=== PATIENT | female | born 2000 ===

== ENCOUNTER 2020-05-26 18:55 | Inpatient (IN) | payer OTHER ==
--- OUTSIDE RECORDS SUMMARY | 2020-05-26 19:47 | XMS ---
:2000 Author Organization [facility] Support Name Relationship Address Phone UE Unavailable Unavailable Unavailable ZOEY MORALES [address] [place] [address] Re-disclosure Warning The records that you are about to access may contain information from federally- assisted alcohol or drug abuse programs. If such information is present, then the following federally mandated warning applies: This information has been disclosed to you from records protected by federal confidentiality rules (42 CFR part 2). The federal rules prohibit you from making any further disclosure of this information unless further disclosure is expressly permitted by the written consent of the person to whom it pertains or as otherwise permitted by 42 CFR part 2. A general authorization for the release of medical or other information is NOT sufficient for this purpose. The Federal rules restrict any use of the information to criminally investigate or prosecute any alcohol or drug abuse patient.The records that you are about to access may contain highly sensitive health information, the redisclosure of which is protected by Article 27-F of the [facility] Public Health law. If you continue you may haveaccess to information: Regarding HIV / AIDS; Provided by facilities licensed or operated by the [facility] Office of Mental Health; or Provided by the [facility] Office for People With Developmental Disabilities. If such information is present, then the following [facility] mandated warning applies: This information has been disclosed to you from confidential records which are protected by state law. State law prohibits you from making any further disclosure of this information without the specific written consent of the person to whom it pertains, or as otherwise permitted by law. Any unauthorized further disclosure in violation of state law may result in a fine or shelter sentence or both. A general authorization for the release of medical or other information is NOT sufficient authorization for further disclosure. Insurance Providers Payer name Policy type Policy ID Covered Covered democrat's Policy P [place] / Coverage democrat ID relationship to Lo Inf ormation type lo MEDICAID [id number] SP [id number] [facility] [id number] SP [id number] 100 HEALTH NON CAP SELF PAY SP INSURANCE
--- OUTSIDE RECORDS SUMMARY | 2020-05-26 19:57 | XMS ---
:2000 Author Organization [facility] Support Name Relationship Address Phone UE Unavailable Unavailable Unavailable ZOEY MORALES [address] [place] [address] Re-disclosure Warning The records that you are [...] is protected by Article 27-F of the [facility] Public Health law. If you continue you may haveaccess to information: Regarding HIV / AIDS; Provided by facilities licensed or operated by the [facility] Office of Mental Health; or Provided by the [facility] Office for People With Developmental Disabilities. If such information is present, then the following [facility] mandated warning applies: This information has been [...] law may result in a fine or detention sentence or both. A general authorization for the release of medical or other information is NOT sufficient authorization for further disclosure. Insurance Providers Payer name Policy type Policy ID Covered Covered green party's Policy P [place] / Coverage green party ID relationship to Lo Inf ormation type lo MEDICAID [id number] SP [id number] COUNTS INCLUDE [id number] [facility]EDS AT [facility] [id number] SP [id number] 100 HEALTH NON CAP SELF PAY SP INSURANCE
[2020-05-26 20:16] LABS: BASO % 0.1 % (0-2.0); EOS % 4.5 % (0-4.5); HEMATOCRIT 40.7 % (32.4-45.2); HEMOGLOBIN 13.8 GM/dL (10.7-15.3); LYMPH % 20.1 % (8-40); MCH 30.5 pg (25.7-33.7); MEAN CELL VOLUME 89.7 fl (80-96); MONO % 4.2 % (3.8-10.2); NEUT % 71.1 % (42.8-82.8); PLATELET COUNT 220 K/MM3 (134-434); RBC 4.54 M/mm3 (3.60-5.2); RDW 13.4 % (11.6-15.6)
[2020-05-26] MEDS ORDERED: PROMETHAZINE HCL 25 MG/1 ML VIAL IVPUSH ONE (20:16)
[2020-05-26] MEDS ORDERED: BUTORPHANOL TARTRATE 1 MG/ML VIAL IVPB ONE (20:16)
[2020-05-26 20:26] LABS: INR 0.93 (0.83-1.09)
[2020-05-26 20:28] LABS: ACTIVATED PTT 28.6 SECONDS (25.2-36.5)
[2020-05-26] MEDS ORDERED: DEXTROSE 5%-LACTATED RINGERS 1,000 ML IV SCH (20:30)
--- NOTE | 2020-05-26 20:34 | HP ---
Past Medical History - Primary Care Physician PCP:: Sera Norton - Admission Chief Complaint: 19yrs , 40.1 wks admitted in active labor. onset LP since 12.00 noon History of Present Illness: care at , [facility] wt gain 33lbs panel 10/16/19 : O pos, Hbsag neg, Rubella immune, Measles immune, Rubella immune, Varicella immune , Sickle neg, Hiv neg , ct/gc neg . gct wnl 04/25/20 h/h 13.2/39.3. plt 245,gbs neg, gc/ct neg, hiv neg dating us 11/13/19 12.2 wks , edc 05/25/20 Anatomy us 12/30/19 : 20.2 wks , normal growth, anatomy wnl 03/02/20 : 28.0 wks , vx, post placenta efw 130gm(73%tile) History Source: Patient, Medical Record Limitations to Obtaining History: No Limitations - Past Medical History ARCHITECTURAL TECHNOLOGIST: No: Seizure Cardiovascular: No: HTN Pulmonary: No: Asthma Hepatobiliary: No: Hepatitis B, Hepatitis C Renal/: No: UTI ...: 1 ...LMP: 08/19/19 ... Weeks Gestation by Dates: 40.1 ...EDC by Dates: 05/25/20 ...EDC by Sono: 05/25/20 (40.1 wks ) Heme/Onc: No: Anemia Infectious Disease: No: AIDS, HIV, STD's, Tuberculosis Psych: No: Addictions, Anxiety, Bipolar, Depression, Panic, Psychosis, Schizophrenia, Other Endocrine: No: Diabetes Mellitus, Hyperthyroidism, Hypothyroidism - Past Surgical History Past Surgical History: Yes: None Hx Myomectomy: No Hx Transabdominal Cerclage: No - Smoking History Smoking history: Never smoked Have you smoked in the past 12 months: No - Alcohol/Substance Use Hx Alcohol Use: No History of Substance Use: reports: None - Social History History of Recent Travel: No Home Medications - Allergies Allergies/Adverse Reactions: Allergies Allergy/AdvReac Type Severity Reaction Status Date / Time pork derived (porcine) Allergy Mild Vomiting Verified 05/26/20 20:25 pork Allergy Mild Vomiting Uncoded 05/26/20 20:15 - Home Medications Home Medications: Ambulatory Orders Pnv No.95/Ferrous Fum/Folic AC [ Caplet] 1 tab PO DAILY 05/26/20 Review of Systems - Review of Systems Constitutional: reports: No Symptoms Eyes: reports: No Symptoms HENT: reports: No Symptoms Neck: reports: No Symptoms Cardiovascular: reports: No Symptoms Respiratory: reports: No Symptoms Gastrointestinal: reports: No Symptoms Genitourinary: reports: No Symptoms Breasts: reports: No Symptoms Reported Musculoskeletal: reports: No Symptoms Integumentary: reports: No Symptoms Neurological: reports: No Symptoms Endocrine: reports: No Symptoms Psychiatric: reports: No Symptoms Pain Intensity: 5 Physical Exam - Maternity Vital Signs: Selected Entries 05/26/20 20:16 Weight 150 lb Constitutional: Yes: Well Nourished, Moderate Distress Eyes: Yes: WNL HENT: Yes: WNL, Normocephalic Neck: Yes: WNL Cardiovascular: Yes: WNL Lungs: Clear to auscultation Breast(s): Yes: WNL - Abdominal Exam/OB Fundal Height: 39 Number of Fetuses: Single Presentation: Vertex Contractions: Yes Regularity: Regular (2 min) Intensity: Moderate Monitor Mode: External Heart Rate (range): 120 Heart Rate Location: Midline Category: I Accelerations: Non-Uniform Decelerations: None - Vaginal Exam/OB Vaginal Bleeding: No Dilatation (cm): 5 Effacement (%): 100 Amniotic Membrane Status: Bulging Presentation: Vertex/Position Station: -1 (-1/0) - Physical Exam Musculoskeletal: Yes: WNL, Muscle Weakness Extremities: No: Calf Tenderness Edema: Yes Edema: LLE: 1+, RLE: 1+ Integumentary: Yes: WNL Deep Tendon Reflex Grade: Normal +2 ...Motor Strength: WNL Psychiatric: Yes: WNL, Alert, Oriented - Labs Lab Results: Laboratory Tests 05/26/20 05/26/20 05/26/20 19:50 19:50 19:50 WBC 12.0 H Hgb 13.8 Hct 40.7 Plt Count 220 PT with INR 11.00 INR 0.93 PTT (Actin FS) 28.6 Sodium 138 Potassium 4.2 Chloride 106 Carbon Dioxide 24 BUN 5.0 L Creatinine 0.6 Random Glucose 72 L Syphilis Serology Blood Type Antibody Screen 05/26/20 05/26/20 19:50 19:50 WBC Hgb Hct Plt Count PT with INR INR PTT (Actin FS) Sodium Potassium Chloride Carbon Dioxide BUN Creatinine Random Glucose Syphilis Serology Non-reactive Blood Type O POSITIVE Antibody Screen Negative Hemorrhage Risk Assessment - Risk Factors High Risk Factors: Yes: None Risk Score: 0 Risk Level: Low Risk Problem List - Problems (1) Post term over 40 weeks Code(s): O48.0 - POST-TERM (2) Labor established Code(s): [id number] - Assessment/Plan 19 yrs , 40.1 wks in labor gbs neg stadol + phenrgan prn for pain anticipate vag delivery
[2020-05-26 20:40] LABS: CALCIUM 8.9 mg/dL (8.5-10.1); CREATININE 0.6 mg/dL (0.55-1.3); POTASSIUM 4.2 mmol/L (3.5-5.1)
[2020-05-26 20:46] VITALS: BMI 26.5
[2020-05-26] MEDS ORDERED: PROMETHAZINE HCL 25 MG/1 ML VIAL ONE (21:06)
[2020-05-26] MEDS ORDERED: BUTORPHANOL TARTRATE 1 MG/ML VIAL ONE (21:06)
--- NOTE | 2020-05-26 21:11 | PN ---
Progress Note, Labor Vaginal Exam #1 Labor Exam Date: 05/26/20 Labor Exam Time: 21:00 Heart Rate (range): 120 Dilatation: 8 Effacement (%): 100 Amniotic Membrane Status: Ruptured Presentation: Vertex/Position Station: 0 (0/+1) Remarks: fhr cat-1 uc 2 min rx iv stadol1 mg + phenrgan 25 m iv stat Vaginal Exam #2 Labor Exam Date: 05/26/20 Labor Exam Time: 22:45 Heart Rate (range): 120 Dilatation: 10 Effacement (%): 100 Amniotic Membrane Status: Ruptured (AROM clear) Presentation: Vertex/Position Station: +2 Remarks: fhr cat-1 uc q2 min pt pushing Selected Entries 05/26/20 05/26/20 20:36 22:00 Temperature 97.8 F 98.1 F Pulse Rate 86 93 H Respiratory 20 20 Rate Blood Pressure 118/79 118/67 Weight 150 lb
[2020-05-26] MEDS ORDERED: OXYTOCIN 20 UNITS in 0.9% NS 20 UNIT/1,000 ML INFUS.BAG IV ONE (22:45)
[2020-05-27] MEDS ORDERED: METHYLERGONOVINE MALEATE 0.2 MG/1 ML AMP IM PRN (00:01)
[2020-05-27] MEDS ORDERED: WITCH HAZEL 50% (TUCKS) 40 PAD/JAR PAD TP PRN (00:01)
[2020-05-27] MEDS ORDERED: oxyCODONE HCL 5 MG TABLET PO PRN (00:01)
[2020-05-27] MEDS ORDERED: ACETAMINOPHEN 325 MG TABLET (FP) PO PRN (00:01)
[2020-05-27] MEDS ORDERED: IBUPROFEN 600 MG TABLET (FP) PO PRN (00:01)
[2020-05-27] MEDS ORDERED: BENZOCAINE 20% 57 GM BOTTLE TP PRN (00:01)
[2020-05-27] MEDS ORDERED: BENZOCAINE 28 GM HEMORRHOIDAL OINTMENT TP PRN (00:01)
[2020-05-27] MEDS ORDERED: BISACODYL 10 MG SUPP.RECT RC PRN (00:01)
[2020-05-27] MEDS ORDERED: OXYTOCIN 20 UNITS in 0.9% NS 20 UNIT/1,000 ML INFUS.BAG IV SCH (00:15)
--- NOTE | 2020-05-27 00:17 | PN ---
Delivery - Delivery Vaginal Delivery: No Problems, Spontaneous (pt delievered vx Jose position, shoulders delievered without difficulty , cord clamped cut, cord blood collected .trivascular cord . placenta removed completely , membranes removed in pieces completely . 2nd degree lacertion noted in midline & lt lateral vaginal edge laceration .local anesthesia infiltrated .Laceration sutured with chr catgut in layers .bladder catheterized emptied 150 ml lance color urine. Pr ex mucosa & sphincter intact .onv258 ml) Type of Anesthesia: Local Episiotomy/Laceration: 2nd degree EBL (cc): 400 Delivery, Single - Stages of Labor Date 1st Stage Initiatied: 05/26/20 Time 1st Stage Initiated: 12:00 Date 2nd Stage Initiated: 05/26/20 Time 2nd Stage Initiated: 22:45 Date of Delivery: 05/26/20 Time of Delivery: 23:00 Time Placenta Delivered: 23:05 Placenta: Yes: Spontaneous, Uterine Exploration - Condition of Investor Relations Coordinator/Computer Typesetter Keyliner Present: No Infant Gender: Male Weight: 8 lb 3 oz Position: Left, OA Total Hours ROM (Hrs/Mins): 20mins. - 1 Minute Total Score: 9 5 Minutes Total Score: 9 - [place] Feeding Plan Initial Plan: Elected not to breastfeed exclusively throughout hospitalization Remarks - Remarks Remarks: 19 yrs , 40.1 weeks in labor . PNC at , [facility] gbs neg , one dose of iv stadol+ phenrgan given for labor analgesia intrapartum course uneventful
[2020-05-27 08:38] LABS: BASO % 0.2 % (0-2.0); EOS % 0.1 % (0-4.5); HEMATOCRIT 33.5 % (32.4-45.2); HEMOGLOBIN 11.6 GM/dL (10.7-15.3); LYMPH % 12.8 % (8-40); MCHC 34.7 g/dl (32.0-36.0); MEAN CELL VOLUME 89.2 fl (80-96); MONO % 5.6 % (3.8-10.2); NEUT % 81.3 % (42.8-82.8); PLATELET COUNT 226 K/MM3 (134-434); RBC 3.75 M/mm3 (3.60-5.2); RDW 13.2 % (11.6-15.6); WHITE BLOOD COUNT 15.6 K/mm3 (4.0-10.0)
[2020-05-27] MEDS: FERROUS SO4 325 MG TABLET (FP) PO SCH ×2 (08:56→17:05)
--- NOTE | 2020-05-27 09:04 | PN ---
Post Progress Note - Subjective Subjective: c/o cramps, & perineal soreness Post Day: 1 Type of Delivery: Vital Signs: Vital Signs Temperature 98.1 F 05/27/20 06:00 Pulse Rate 93 H 05/27/20 06:00 Respiratory Rate 18 05/27/20 06:00 Blood Pressure 101/69 05/27/20 06:00 O2 Sat by Pulse Oximetry (%) 100 05/27/20 00:15 Breast Exam: Yes: Soft, Other (attempting BF ). No: Engorged Uterus: Yes: Fundus Firm, Fundus below umbilicus, Non-tender Lochia: Yes: Rubra Lochia, amount: Moderate Extremities: Yes: Calves non-tender Perineum: Yes: Laceration (healing, soreness) Activity: Ambulating - Labs Labs: CBC WBC Cancelled 05/27/20 Unknown Corrected WBC (auto) Cancelled 05/27/20 Unknown RBC Cancelled 05/27/20 Unknown Hgb Cancelled 05/27/20 Unknown Hct Cancelled 05/27/20 Unknown MCV Cancelled 05/27/20 Unknown MCH Cancelled 05/27/20 Unknown MCHC Cancelled 05/27/20 Unknown RDW Cancelled 05/27/20 Unknown Plt Count Cancelled 05/27/20 Unknown MPV Cancelled 05/27/20 Unknown Absolute Neuts (auto) Cancelled 05/27/20 Unknown Absolute Lymphs (auto) Cancelled 05/27/20 Unknown Absolute Monos (auto) Cancelled 05/27/20 Unknown Absolute Eos (auto) Cancelled 05/27/20 Unknown Absolute Basos (auto) Cancelled 05/27/20 Unknown Add Manual Diff Cancelled 05/27/20 Unknown Neutrophils % Cancelled 05/27/20 Unknown Lymphocytes % Cancelled 05/27/20 Unknown Monocytes % Cancelled 05/27/20 Unknown Eosinophils % Cancelled 05/27/20 Unknown Basophils % Cancelled 05/27/20 Unknown Nucleated RBC % Cancelled 05/27/20 Unknown Platelet Estimate Cancelled 05/27/20 Unknown Platelet Comment Cancelled 05/27/20 Unknown Normal RBC Morphology Cancelled 05/27/20 Unknown Laboratory Tests 05/27/20 07:58 WBC 15.6 H RBC 3.75 Hgb 11.6 Hct 33.5 D MCV 89.2 MCH 31.0 MCHC 34.7 RDW 13.2 Plt Count 226 MPV 7.0 L Absolute Neuts (auto) 12.7 H Neutrophils % 81.3 Lymphocytes % 12.8 D Monocytes % 5.6 Eosinophils % 0.1 D Basophils % 0.2 Nucleated RBC % 0 Problem List - Problems (1) Post term over 40 weeks Code(s): O48.0 - POST-TERM (2) Labor established Code(s): [id number] - (3) (normal spontaneous vaginal delivery) Code(s): O80 - ENCOUNTER FOR FULL-TERM UNCOMPLICATED DELIVERY (4) Encounter for care after planned out of hospital delivery Code(s): Z39.2 - ENCOUNTER FOR ROUTINE FOLLOW-UP Assessment/Plan s/p vag del last night stable pericare explained will discharge tomorrow.
[2020-05-27] MEDS: PRENATAL VITAMINS W/ FOLIC ACID TABLET (FP) PO SCH (10:25)
--- NOTE | 2020-05-28 08:17 | PN ---
Post Progress Note - Subjective Subjective: Pain controlled. No fevers/chills. Ambulating. Lochia < menses Post Day: 1 Type of Delivery: Vital Signs: Vital Signs Temperature 98.7 F 05/27/20 22:00 Pulse Rate 93 H 05/27/20 22:00 Respiratory Rate 18 05/27/20 22:00 Blood Pressure 125/75 05/27/20 22:00 O2 Sat by Pulse Oximetry (%) 98 05/27/20 22:00 Uterus: Yes: Fundus below umbilicus Abdomen/GI: Yes: Abdomen soft Lochia: Yes: Rubra Lochia, amount: Small Extremities: Yes: Calves non-tender Activity: Ambulating - Labs Labs: CBC WBC Cancelled 05/27/20 Unknown Corrected WBC (auto) Cancelled 05/27/20 Unknown RBC Cancelled 05/27/20 Unknown Hgb Cancelled 05/27/20 Unknown Hct Cancelled 05/27/20 Unknown MCV Cancelled 05/27/20 Unknown MCH Cancelled 05/27/20 Unknown MCHC Cancelled 05/27/20 Unknown RDW Cancelled 05/27/20 Unknown Plt Count Cancelled 05/27/20 Unknown MPV Cancelled 05/27/20 Unknown Absolute Neuts (auto) Cancelled 05/27/20 Unknown Absolute Lymphs (auto) Cancelled 05/27/20 Unknown Absolute Monos (auto) Cancelled 05/27/20 Unknown Absolute Eos (auto) Cancelled 05/27/20 Unknown Absolute Basos (auto) Cancelled 05/27/20 Unknown Add Manual Diff Cancelled 05/27/20 Unknown Neutrophils % Cancelled 05/27/20 Unknown Lymphocytes % Cancelled 05/27/20 Unknown Monocytes % Cancelled 05/27/20 Unknown Eosinophils % Cancelled 05/27/20 Unknown Basophils % Cancelled 05/27/20 Unknown Nucleated RBC % Cancelled 05/27/20 Unknown Platelet Estimate Cancelled 05/27/20 Unknown Platelet Comment Cancelled 05/27/20 Unknown Normal RBC Morphology Cancelled 05/27/20 Unknown Assessment/Plan 19yo s/p , PPD#1 Routine PP care PO pain control F/U AM CBC D/C to home today Grace Avelar MD
[2020-05-28] MEDS: FERROUS SO4 325 MG TABLET (FP) PO SCH (08:40)
[2020-05-28 09:05] VITALS: BP 100/66; PULSE 82; TEMP 98.3
[2020-05-28] MEDS: PRENATAL VITAMINS W/ FOLIC ACID TABLET (FP) PO SCH (09:53)
[2020-05-28] MEDS ORDERED: SENNOSIDES/DOCUSATE COMBO (SENNA PLUS) TABLET (UD) PO PRN (22:00)
== END 2020-05-28 14:20 | disposition home or self-care (01) | DRG 560 ==
LOC: JDEL 18:55 → JLDR 19:00 → J3W 05-27 01:12
PROVIDERS: ADMIT Obstetrics & Gynecology; ATTEND Obstetrics & Gynecology
PROC: 10E0XZZ Delivery of Products of Conception, External Approach (ICD-10-PCS; principal; 2020-05-26)
PROC: 10907ZC Drainage of Amniotic Fluid, Therapeutic from Products of Conception, Via Natural or Artificial Opening (ICD-10-PCS; 2020-05-26)
PROC: 0KQM0ZZ Repair Perineum Muscle, Open Approach (ICD-10-PCS; 2020-05-26)
PROC: 0UQGXZZ Repair Vagina, External Approach (ICD-10-PCS; 2020-05-26)
DX: O48.0 Post-term pregnancy (principal); O70.1 Second degree perineal laceration during delivery; Z3A.40 40 weeks gestation of pregnancy; Z37.0 Single live birth
CPT/HCPCS: 36415; 59409; 80048; 85025; 85610; 85730; 86780; 86850; 86900; 86901; U0003